=== PATIENT | female | born 1950 | race Caucasian/White ===

== ENCOUNTER 2018-11-05 08:22 | Inpatient (IN) ==
[~2018-11-05 08:22] MED LIST: MORPHINE SULFATE 15 MG TABLET.SA PO PRN; ROPIVACAINE HCL/PF 100 MG, EPINEPHrine 0.2 MG, KETOROLAC TROMETHAMINE 30 MG in NORMAL S... IJ PRN; TRANEXAMIC ACID 1,000 MG in NORMAL SALINE 100 ML IV PRN; ceFAZolin SODIUM 1 GM VIAL IV PRN
[2018-11-05] MEDS: RINGER'S SOLUTION,LACTATED 1,000 ML IV PRN ×3 (09:00→12:35)
--- NOTE | 2018-11-05 10:35 | ANES ---
Anesthesia Pre Procedure Eval Vitals/Labs: Last Vital Signs Temp 36.7 C 11/05/18 08:44 Pulse 71 11/05/18 08:44 Resp 18 11/05/18 08:44 BP 146/66 11/05/18 08:44 Pulse Ox 95 11/05/18 08:44 HOME MEDICATIONS metFORMIN HCL [Glucophage] 1,000 mg PO BIDWM 09/06/17 [Last Taken Unknown] blood sugar diagnostic strips See Dose Instructions .ROUTE .MEDSUPPLY #20 ea 01/30/18 [Last Taken Unknown] blood-glucose meter kit See Dose Instructions .ROUTE .MEDSUPPLY #1 ea 01/30/18 [Last Taken Unknown] lancets 28 gauge See Dose Instructions .ROUTE .MEDSUPPLY #25 ea 01/30/18 [Last Taken Unknown] multivitamin tablet 1 tab PO DAILY 01/30/18 [Last Taken Unknown] venlafaxine ER 150 mg capsule,extended release 24 hr 150 mg PO DAILY #90 cap 08/10/18 [Last Taken Unknown] apple cider vinegar 300 mg tablet 300 mg PO DAILY tab 10/18/18 [Last Taken Unknown] turmeric root extract 500 mg capsule 1,950 mg PO DAILY 10/18/18 [Last Taken Unknown] atorvastatin 10 mg tablet 10 mg PO DAILY 11/01/18 [Last Taken Unknown] Acetaminophen [Tylenol] 650 mg PO Q6H PRN 11/05/18 [Last Taken Unknown] Allergies/Adverse Reactions: Allergies Allergy/AdvReac Type Severity Reaction Status Date / Time No Known Allergies Allergy Verified 11/05/18 08:38 - Planned Procedure Planned Procedure: Left Arthroplasty Total Hip Medication List Reviewed:: Yes Allergies Verified: Yes Medical History (Updated 10/18/18 @ 08:51 by Donnie Flores MD) Urinary incontinence (Chronic) Onset Date: Unknown TMJ (temporomandibular joint disorder) (Chronic) Onset Date: ~2012 Neoplasm, ovary, malignant (Chronic) Onset Date: ~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, high grade serous ovarian carcinoma LISA (obstructive sleep apnea) (Chronic) Onset Date: Unknown Neuropathy (Chronic) Onset Date: Unknown Depression (Chronic) Onset Date: Unknown Cervical dysplasia (Resolved) Onset Date: Unknown Obesity Onset Date: Unknown Cellulitis Onset Date: ~2012 facial Ventral hernia Onset Date: ~2015 chemotherapy Onset Date: ~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 2011-Scattered small sigmoid diverticulosis. Recheck in 10 years History of laparotomy Onset Date: ~2011 History of tonsillectomy Onset Date: Unknown History of total abdominal hysterectomy and bilateral salpingo-oophorectomy Onset Date: ~2011 [facility]-ovarian cancer staging, robotic assisted lymph node resection Onset Date: ~2011 Pelvic and periaortic lymph node resection Family History (Updated 01/30/18 @ 14:25 by Chantal Newman RN) Mother Vertigo Brother Alive and well Sister Alive and well Father COPD (chronic obstructive pulmonary disease) Lung cancer Uncle Colon cancer Uncle Colon cancer Lung cancer Aunt Breast cancer - Family Anesthesia History Family History:: no untoward family reactions to anesthesia, no familial bleeding tendencies, no family history of clotting disorders, no family history of premature - Airway/Neck/Teeth Within Normal Limits:: Yes Teeth Condition: intact Mallampatti Score: 2 Thyromental (T-M) distance: > 6 cm Mandibulo Hyoid distance: > 3 cm - Respiratory Respiratory History: CPAP/BiPAP home use Respiratory Physical: lungs clear Smoking Status: Former smoker Discussed smoking cessation including day of surgery: No Sleep Apnea currently treated: Yes - Cardiovascular Tolerate Activity: Fair Heart Sounds: S1 & S2, Regular - Anesthesia Assessment and Plan ASA Class: PS, III Anesthesia Type Plan: Spinal
[2018-11-05] MEDS ORDERED: RINGER'S SOLUTION,LACTATED 1,000 ML IV PRN (12:30)
[2018-11-05] MEDS ORDERED: MAG HYDROX/ALUMINUM HYD/SIMETH 30 ML UDC PO PRN (12:30)
[2018-11-05] MEDS ORDERED: ZOLPIDEM TARTRATE 5 MG TABLET PO PRN (12:30)
[2018-11-05] MEDS ORDERED: ONDANSETRON HCL/PF 2 MG/ML VIAL IV PRN (12:30)
[2018-11-05] MEDS ORDERED: diphenhydrAMINE HCL 50 MG/ML VIAL IV PRN (12:30)
[2018-11-05] MEDS ORDERED: ACETAMINOPHEN 500 MG TABLET PO PRN (12:30)
[2018-11-05] MEDS ORDERED: MAGNESIUM HYDROXIDE 30 ML UDC PO PRN (12:30)
[2018-11-05] MEDS ORDERED: MORPHINE SULFATE 2 MG/ML DISP.SYRIN IV PRN (12:30)
--- NOTE | 2018-11-05 12:35 | OR ---
Operative Report - Dictated Report Narrative: Date: 11/05/2018 Preoperative diagnosis: Left hip degenerative joint disease. Postoperative diagnosis: Left hip degenerative joint disease. Procedure: Left total hip arthroplasty. Surgeon: Donnie Flores M.D. Boiler Technician: Glenn Jimenez PA-C (provided an essential set of skilled, educated and assisted with transfer, positioning, prepping, draping, manipulation, traction, irrigation, suturing, and placement of dressings all of which cannot be performed by the available surgical crew) Anesthesia: Spinal and local periarticular joint injection. Complications: None Specimens: Bone. Estimated blood loss: 200 milliliters. Retained implants: Depuy Tre[place]orton size 5 femoral stem standard offset. Size 52 millimeter outside diameter 3-hole [place] Gription acetabular cup. 52 millimeter outside by 36 millimeter inside diameter highly cross-linked acetabular liner. 36 millimeter diameter +5 millimeter ceramic femoral head. Cancellous 6.5mm screw 30 millimeter length Indications: Mrs. Rob is a 68-year-old female who has had long-standing left hip pain and arthrosis. This patient was followed in my clinic for period of time with significant complaints of left hip pain consistent with arthritic changes. She failed conservative measures including but not limited to activity modification, passage of time, medications, and other conservative measures. Patient wished to proceed with surgical treatment. The risks, benefits, and alternatives were discussed in clinic. The risks of , blood clots, bleeding, infection, nerve/tendon blood vessel/ injury, malposition of components, dislocation and/or instability of joint, intraoperative fracture, postoperative limited range of motion, persistent pain, failure of components, and need for additional procedures. Patient wished to proceed. Consent was obtained after answering all questions. Procedure: After marking the correct extremity on the floor, the patient was taken to the operating room. A timeout was performed. IV antibiotics consisting of Ancef were administered prior to the procedure. A spinal anesthetic was induced by anesthesia. A Farrell catheter was inserted. The patient was then transitioned to a lateral position on a well-padded pegboard. An axillary roll was placed. The head was in neutral position. The non- operative down leg was well-padded with SCD and JUANITO hose in place. The arms were supported and padded to protect from any undue pressure on the bony prominences and nerves. A well-padded anterior and posterior pelvic and chest posts were secured in order to maintain a stable position of the pelvis. This was placed so that the pelvis was perpendicular to the floor. The body was in line with the pelvis. Once it was felt that we had protected all the bony prominences and the patient was well secured with a safety belt as well, the leg was pre-scrubbed with alcohol, prepped and draped in a standard sterile fashion. A standard anterior lateral hip incision was marked out over the greater trochanter. Ioban drapes were then placed. The skin incision was then made. Sharp dissection with a scalpel utilizing cautery for hemostasis was carried out down to the gluteus and iliotibial band fascia. This was split in line with the skin incision. The greater trochanter bursa was excised. The anterior and posterior margins of the abductor tendon were identified. The anterior 1/2-1/3 of the tendon was tagged and reflected off the greater trochanter leaving a sleeve of tendon for repair at the completion of the case. This exposed the underlying hip joint capsule. A limb length stitch was placed in the skin and referencedd off a vargas on the greater trochanter for evaluation of intraoperative limb lengths. An inverted T-type capsulotomy was made extending this up to the brim of the acetabulum. Using Homans to assist with elevation of the soft tissues off the anterior, superior, and inferior aspects of the femoral neck, the hip was then placed in a figure 4 position and the femoral head was dislocated. With the leg in an externally rotated and adducted position, the cutting flag was utilized in order to vargas for a standard femoral neck cut approximately a fingerbreadth above the level of the lesser trochanter. This was done with reference to pre-operative films and overall alignment. This was done while protecting the surrounding soft tissues with Homans. The femoral head was then removed and sized for guidance on preparation of the acetabulum. It was noted that there was loss of articular cartilage on both the femoral head and weightbearing portions of the acetabulum. We then returned the leg to the table and turned our attention to the acetabulum. While protecting the surrounding soft tissues, the labrum and remaining tissue in the fovea were excised using a scalpel and cautery. A series of reamers up to size 52 millimeter were utilized to prepare the acetabulum. The final reamer had good purchase and exposed the bleeding subchondral bone. The acetabulum was then thoroughly irrigated ensuring that all bony and cartilaginous materials were removed, and the final acetabular shell was impacted into place. This was placed in approximately 45 degrees of abduction and 20 degrees of anteversion utilizing the outrigger and body axis for alignment. This had a good press fit. 1 6.5mm cancellous screw was placed in the superior posterior quadrant of the acetabulum. The shell was then thoroughly irrigated and the final polyethylene was impacted into place ensuring that it seated completely. This was then protected with a sponge while we returned our attention to the femur. With the leg in a figure 4 position, utilizing Homans for soft tissue protection, a box cutting osteotome, followed by Charnley awl, followed by serial reamers and broaches were utilized in order to prepare the femur. It was found that a size 5 broach gave good axial and rotational stability. The calcar reamer was utilized in order to clean up the cut edges. The proximal femur was visualized to ensure that there were no signs of fracture. A series of heads and necks were trialed. It was found that a standard offset neck and a + 5 femoral head gave good overall stability. There was minimal longitudinal instability. With the leg in the position of sleep, the femoral head was well covered. Hip range of motion was able to reach full extension and external rotation to greater than 75 degrees prior to impingement along the posterior acetabulum. The hip was able to be flexed to greater than 90 degrees with internal rotation greater than 60 degrees prior to anterior impingement. The limb lengths were near equal based on comparison to the contralateral side and the prior placed limb length stitch. At this point it was felt these were the appropriately sized femoral components as well as neck and femoral head. The trial implants were removed. The femur was thoroughly irrigated. The final implants were impacted into place, and the hip was reduced. After ensuring that there was no damage to the proximal femur, the standard periarticular joint injection of ropivacaine, Toradol, and epinephrine were injected into the joint capsule and surrounding soft tissues. Anesthesia then administered intravenous tranexamic acid. The capsule was repaired with a single interrupted #1 Vicryl. The abductor tendon was repaired to the greater trochanter utilizing #5 Ethibond through drill holes. This was oversewn with #1 Vicryl. The fascia was closed with interrupted #1 Vicryl and strata fix barbed suture. The wounds were thoroughly irrigated as we closed in layers. The deep and subcutaneous fat layers were closed with 0 and 3-0 Vicryl respectively. The subcutaneous tissue was closed with a running 3-0 Vicryl and the skin yanick. All sponge, needle, blade, and instrument counts were correct prior to closing the wounds. Sterile dressings consisting of xeroform, 4 x 4's, and tape were applied. The patient was awoken and transferred to her hospital bed and then to the postanesthesia care unit in stable condition. Postoperative condition: The plan is to admit to the medical/surgical inpatient floor postoperatively. There will be a projected 1 to 3 day hospital stay. Postoperatively 24 hours of IV antibiotics, pain control, physical therapy, occupational therapy, and medical comanagement will be utilized. Patient will be weightbearing as tolerated with anterior hip precautions. Postoperative films will be obtained in the recovery room.
--- NOTE | 2018-11-05 12:58 | ANES ---
Post Anesthesia Discharge - Transfer of Care Transfer of Care handoff given to nurse: Yes - Discharge from PACU Discharge from PACU when meets criteria: Yes
--- NOTE | 2018-11-05 13:33 | ANES ---
Post Anesthesia Assessment - Vital Signs Vitals: Last Vital Signs Temp 36.6 C 11/05/18 13:05 Pulse 60 11/05/18 13:10 Resp 14 11/05/18 13:10 BP 93/50 11/05/18 13:10 Pulse Ox 97 11/05/18 13:10 Airway Patency: Normal - Mental Status Level Of Consciousness: Awake - Pain Level Pain Score: 2 - N/V Assessment Nausea/Vomiting Presence: None Dehydration:: No
[2018-11-05] MEDS: KETOROLAC TROMETHAMINE 15 MG/ML VIAL IV SCH ×2 (13:42→19:11)
[2018-11-05] MEDS: ceFAZolin SODIUM 1 GM in DEXTROSE 5 % IN WATER 100 ML IV SCH ×4 (14:32→21:25)
[2018-11-05] MEDS: oxyCODONE HCL/ACETAMINOPHEN 1 TAB TABLET PO PRN ×2 (16:06→21:21)
[2018-11-05] MEDS ORDERED: SENNOSIDES/DOCUSATE SODIUM 1 TAB TABLET PO SCH (21:00)
[2018-11-05] MEDS: MORPHINE SULFATE 15 MG TABLET.SA PO SCH (21:21)
[2018-11-06] MEDS: KETOROLAC TROMETHAMINE 15 MG/ML VIAL IV SCH ×2 (01:13→07:43)
[2018-11-06] MEDS: ceFAZolin SODIUM 1 GM in DEXTROSE 5 % IN WATER 100 ML IV SCH ×2 (02:29)
[2018-11-06] MEDS: oxyCODONE HCL/ACETAMINOPHEN 1 TAB TABLET PO PRN ×2 (05:05→11:14)
[2018-11-06 05:25] LABS: Mean Cell Volume 97.8 fl (78-100); Mean Corpuscular Hemoglobin 30.7 pg (27-31); Mean Corpuscular Hgb Conc 31.4 g/dl (32-36); Mean Platelet Volume 8.7 fl (8-12.5); Platelet Count 163 K/mm3 (150-450); Red Blood Count 3.58 M/mm3 (4.2-5.4); Red Cell Distribution Width 13.5 % (11.5-14.0); White Blood Count 10.2 K/mm3 (4.0-10.5)
[2018-11-06 05:32] LABS: Anion Gap 10.7 mmol/L (6.8-13.8); BUN/Creatinine Ratio 21.3 (9.0-21.6); Calcium * 8.3 mg/dL (7.9-10.9); Carbon Dioxide 27.4 mmol/L (24-32.6); Estimated Creat Clear 47.8; Potassium 4.1 mmol/L (3.4-4.6)
[2018-11-06] MEDS ORDERED: ROSUVASTATIN CALCIUM 10 MG TABLET PO SCH (09:00)
[2018-11-06] MEDS ORDERED: MULTIVITAMINS 1 CAP CAPSULE PO SCH (09:00)
[2018-11-06] MEDS ORDERED: CIDER VINEGAR 300 MG PO SCH (09:00)
[2018-11-06] MEDS ORDERED: TURMERIC ROOT EXTRACT PO SCH (09:00)
[2018-11-06] MEDS ORDERED: VENLAFAXINE HCL 150 MG CAP.SR.24H PO SCH (09:00)
[2018-11-06] MEDS: MORPHINE SULFATE 15 MG TABLET.SA PO SCH (09:07)
[2018-11-06] MEDS ORDERED: ENOXAPARIN SODIUM 40 MG/0.4 ML SYRG SC SCH (11:30)
--- NOTE | 2018-11-06 12:20 | DS ---
(1) Status post left hip replacement Problem: Acute (2) Acute blood loss anemia Problem: Acute (3) Diabetes Problem: Chronic (4) Hypercholesterolemia Problem: Suspected (5) Osteoarthritis of hip Problem: Chronic Qualifiers: Description of Stay: Mrs. Rob was admitted to the floor after undergoing left total hip arthroplasty. Tolerated this well. Was admitted to the floor postoperatively for 24 hours of IV antibiotics, pain control, medical comanagement, and occupational and physical therapy. OT and PT were consulted to assist with activities of daily living and ambulation. Was made weightbearing as tolerated with range of motion as tolerated with anterior hip precautions. Pain was initially controlled with IV regimen. This was transitioned to oral once tolerating a by mouth intake. Was resumed on home diet and medications. Had a Farrell catheter inserted and the operating room which was discontinued on postoperative day 1. Lovenox SCD and JUANITO hose were utilized for DVT prophylaxis. Vital signs remained stable to the hospital course. Serial labs were obtained which showed a final hemoglobin of 11.0 grams. BMP was reviewed and was stable. Physical examination throughout the hospital course showed an extremity that had sensation that was intact to light touch, palpable pulses, a benign wound, motor intact to the toes, ankle, and knee. Once an oral pain regimen was tolerated and physical therapy goals were met, it was felt that they were stable for discharge to home. Instructions: Continue with weightbearing as tolerated and range of motion as tolerated with anterior hip precautions. Keep wound clean and dry if you note any drainage or for comfort you can cover with dry gauze and tape. Change every 2-3 days as needed. Continue with physical therapy. Resume home diet. Report any fever over 101.5 Fahrenheit, uncontrolled pain, increased drainage, foul odor of drainage, new or increased calf pain or shortness of breath, or any other significant complaints. A 325mg dialy aspirin will be started after finishing anticoagulation if not allergic. Continue with JUANITO hose on the operative extremity until instructed otherwise. No driving until instructed otherwise. Follow up in approximately 10-14 days. Procedures Performed: see notes below List Procedures: Left total hip arthroplasty Results and Findings: Lab Pending Results 11/06/18 05:15: WBC 10.2, RBC 3.58 L, Hgb 11.0 L, Hct 35.0 L, MCV 97.8, MCH 30.7, MCHC 31.4 L, RDW 13.5, Plt Count 163, MPV 8.7 11/06/18 05:15: Sodium 139, Plasma Sodium 139, Potassium 4.1, Chloride 105, Carbon Dioxide 27.4, Anion Gap 10.7, BUN 19, Creatinine 0.89, Est GFR (Non-Af Amer) 67, BUN/Creatinine Ratio 21.3, Random Glucose 101, Calcium 8.3 Discharge Location: Home Disposition: Home self-care Condition: Good Discharge Activity: Activity as tolerated, Weight bearing, Other - Wheeled walker with anterior hip precautions Discharge Diet: Consistent carbs, Low fat/chol Referrals: Donnie Flores MD [Staff Physician] - 11/20/18 1:45 pm Problem Oriented Discharge Instructions to Patient/Family: Total Hip Replacement, [id number] Additional Patient Instructions (free text): Physical therapy at [facility] rehab scheduled for Monday11/07/18 at 8:00am. Post-op follow up in the office with Dr. Salcedo scheduled for Monday11/20/18 at 1:45pm. Prescriptions (Any new or edited meds): Enoxaparin Sodium [Lovenox] 40 mg SC Q24H #7 disp.syrin Morphine Sulfate [Ms Contin] 15 mg PO Q12H #14 tablet.sa oxyCODONE HCL/ACETAMINOPHEN [Percocet 5 MG/325 MG] 2 tab PO Q4H PRN #60 tab PRN Reason: Moderate Pain (Pain Scale 4-6) Sennosides/Docusate Sodium [Senokot-S] 2 tab PO HS #30 tab Complete Home Medications List: Complete Home Medication List: metFORMIN HCL [Glucophage] 1,000 mg PO BIDWM 09/06/17 blood sugar diagnostic strips See Dose Instructions .ROUTE .MEDSUPPLY #20 ea 01/30/18 blood-glucose meter kit See Dose Instructions .ROUTE .MEDSUPPLY #1 ea 01/30/18 lancets 28 gauge See Dose Instructions .ROUTE .MEDSUPPLY #25 ea 01/30/18 multivitamin tablet 1 tab PO DAILY 01/30/18 venlafaxine ER 150 mg capsule,extended release 24 hr 150 mg PO DAILY #90 cap 08/10/18 apple cider vinegar 300 mg tablet 300 mg PO DAILY tab 10/18/18 turmeric root extract 500 mg capsule 1,950 mg PO DAILY 10/18/18 atorvastatin 10 mg tablet 10 mg PO DAILY 11/01/18 Enoxaparin Sodium [Lovenox] 40 mg SC Q24H #7 disp.syrin 11/06/18 Morphine Sulfate [Ms Contin] 15 mg PO Q12H #14 tablet.sa 11/06/18 Sennosides/Docusate Sodium [Senokot-S] 2 tab PO HS #30 tab 11/06/18 oxyCODONE HCL/ACETAMINOPHEN [Percocet 5 MG/325 MG] 2 tab PO Q4H PRN #60 tab 11/06/18 Amb Orders for Discharge: PT Evaluation and Treatment* Facility: [facility], Location: Rehabilitation Services
[2018-11-06 13:47] VITALS: BP 145/67
== END 2018-11-06 14:05 | disposition home or self-care (01) | DRG 470 ==
LOC: MS 08:22
PROVIDERS: ADMIT Orthopaedic Surgery; ATTEND Orthopaedic Surgery
DX: M16.12 Unilateral primary osteoarthritis, left hip; Z92.21 Personal history of antineoplastic chemotherapy; Z68.42 Body mass index [BMI] 45.0-49.9, adult; G47.33 Obstructive sleep apnea (adult) (pediatric); Z85.43 Personal history of malignant neoplasm of ovary; Z87.891 Personal history of nicotine dependence; F32.9 Major depressive disorder, single episode, unspecified; E66.9 Obesity, unspecified
CPT/HCPCS: 36415; 73502; 80048; 85027; 94660; 97110; 97116; 97161; 97165; 97530; J2405

== ENCOUNTER 2019-09-23 06:25 | Observation (INO) ==
[~2019-09-23 06:25] MED LIST changes: +RINGER'S SOLUTION,LACTATED 1,000 ML IV PRN
[2019-09-23] MEDS ORDERED: PROPOFOL VIAL IV ONE (06:36)
[2019-09-23] MEDS ORDERED: BUPIVACAINE HCL/EPINEPHRINE/PF 30 ML VIAL IJ ONE (06:36)
[2019-09-23] MEDS ORDERED: MIDAZOLAM HCL/PF 5 MG/ML VIAL ONE (06:36)
[2019-09-23] MEDS ORDERED: ISOPROPYL ALCOHOL 480 APPL BTL MC ONE (07:15)
[2019-09-23] MEDS ORDERED: ceFAZolin SODIUM 1 GM VIAL ONE (07:15)
--- NOTE | 2019-09-23 07:21 | ANES ---
Anesthesia Pre Procedure Eval Vitals/Labs: Last Vital Signs Temp 36.3 C 09/23/19 06:43 Pulse 62 09/23/19 06:43 Resp 16 09/23/19 06:43 BP 131/64 09/23/19 06:43 Pulse Ox 95 09/23/19 06:43 HOME MEDICATIONS metFORMIN HCL [Glucophage] 1,000 mg PO BIDWM 09/06/17 [Last Taken Unknown] blood sugar diagnostic See Dose Instructions .ROUTE .MEDSUPPLY #20 ea 01/30/18 [Last Taken Unknown] blood-glucose meter See Dose Instructions .ROUTE .MEDSUPPLY #1 ea 01/30/18 [Last Taken Unknown] lancets 28 gauge See Dose Instructions .ROUTE .MEDSUPPLY #25 ea 01/30/18 [Last Taken Unknown] multivitamin 1 tab PO DAILY 01/30/18 [Last Taken Unknown] atorvastatin 10 mg tablet 10 mg PO DAILY 11/01/18 [Last Taken Unknown] venlafaxine 150 mg capsule,extended release 24 hr See Rx Instructions .ROUTE .COMPLEX #90 capsule 06/06/19 [Last Taken Unknown] cholecalciferol (vitamin D3) 25 mcg (1,000 unit) capsule 25 mcg PO DAILY 08/22/19 [Last Taken Unknown] gabapentin 300 mg capsule 300 mg PO BID 08/22/19 [Last Taken Unknown] Allergies/Adverse Reactions: Allergies Allergy/AdvReac Type Severity Reaction Status Date / Time No Known Allergies Allergy Verified 09/23/19 06:39 - Planned Procedure Planned Procedure: Right Arthroplasty Total Knee Medication List Reviewed:: Yes Allergies Verified: Yes Medical History (Last Reviewed 09/23/19 @ 07:19 by Jesús Gill CRNA) Urinary incontinence (Chronic) Onset Date: Unknown TMJ (temporomandibular joint disorder) (Chronic) Onset Date: ~2012 Neoplasm, ovary, malignant (Chronic) Onset Date: ~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, high grade serous ovarian carcinoma LISA (obstructive sleep apnea) (Chronic) Onset Date: Unknown Neuropathy (Chronic) Onset Date: Unknown Depression (Chronic) Onset Date: Unknown Cervical dysplasia (Resolved) Onset Date: Unknown Diabetes mellitus, type II Obesity Onset Date: Unknown Cellulitis Onset Date: ~2012 facial Ventral hernia Onset Date: ~2015 chemotherapy Onset Date: ~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 high grade serous ovarian carcinoam Surgical History (Last Reviewed 09/23/19 @ 07:19 by Jesús Gill CRNA) Status post left hip replacement (Chronic) 11/05/18 [place] Status post total hip replacement, left Onset Date: ~11/05/18 H/O adenoidectomy Onset Date: Unknown H/O colposcopy with cervical biopsy Onset Date: Unknown H/O hernia repair Onset Date: Unknown H/O oral surgery Onset Date: Unknown upper palate History of appendectomy Onset Date: ~1975 History of biopsy Onset Date: ~2011 peritoneal biopsy History of cataract surgery Onset Date: ~2015 Bilateral History of colonoscopy Onset Date: ~2011 2005-Dr Rock-scattered small sigmoid diverticulosis. 2011-Scattered small sigmoid diverticulosis. Recheck in 10 years History of laparotomy Onset Date: ~2011 History of tonsillectomy Onset Date: Unknown History of total abdominal hysterectomy and bilateral salpingo-oophorectomy Onset Date: ~2011 [facility]-ovarian cancer staging, robotic assisted lymph node resection Onset Date: ~2011 Pelvic and periaortic lymph node resection Family History (Last Reviewed 09/23/19 @ 06:41 by Dayanna Boland RN) Mother Vertigo Brother Alive and well Sister Alive and well Father COPD (chronic obstructive pulmonary disease) Lung cancer Uncle Colon cancer Uncle Colon cancer Lung cancer Aunt Breast cancer - Family Anesthesia History Family History:: no untoward family reactions to anesthesia, no familial bleeding tendencies, no family history of clotting disorders, no family history of premature - Airway/Neck/Teeth Within Normal Limits:: Yes Teeth Condition: intact Neck Exam: full range of motion Mallampatti Score: 3 Thyromental (T-M) distance: > 6 cm Mandibulo Hyoid distance: > 3 cm - Respiratory Respiratory History: sleep apnea, CPAP/BiPAP home use Respiratory Physical: lungs clear Smoking Status: Former smoker Sleep Apnea currently treated: Yes Sleep Apnea by current assessment: Yes - Cardiovascular Tolerate Activity: Fair Heart Sounds: S1 & S2, Regular - Gastrointestinal NPO since: 2400 - Anesthesia Assessment and Plan ASA Class: PS, III Anesthesia Type Plan: Block - Adductor canal block for post op pain relief, Spinal
[2019-09-23] MEDS ORDERED: RINGER'S SOLUTION,LACTATED 1,000 ML IV PRN (09:46)
[2019-09-23] MEDS ORDERED: MAG HYDROX/ALUMINUM HYD/SIMETH 30 ML UDC PO PRN (09:46)
[2019-09-23] MEDS ORDERED: MORPHINE SULFATE 2 MG/ML DISP.SYRIN IV PRN (09:46)
[2019-09-23] MEDS ORDERED: MAGNESIUM HYDROXIDE 30 ML UDC PO PRN (09:46)
[2019-09-23] MEDS ORDERED: ZOLPIDEM TARTRATE 5 MG TABLET PO PRN (09:46)
[2019-09-23] MEDS ORDERED: ONDANSETRON HCL/PF 2 MG/ML VIAL IV PRN (09:46)
[2019-09-23] MEDS ORDERED: diphenhydrAMINE HCL 50 MG/ML VIAL IV PRN (09:46)
[2019-09-23] MEDS ORDERED: ACETAMINOPHEN 500 MG TABLET PO PRN (09:46)
--- NOTE | 2019-09-23 09:52 | OR ---
Operative Report - Dictated Report Narrative: Date: 09/23/2019 Preoperative diagnosis: Right knee degenerative joint disease. Postoperative diagnosis: Right knee degenerative joint disease. Procedure: Right total knee arthroplasty. Surgeon: Donnie Flores M.D. Mission Coordinator: Glenn Jimenez PA-C (provided and essential set of skilled, educated hands that assisted with transfer, positioning, prepping, draping, manipulation, retraction, placement of jigs, injection, insertion of implants, irrigation, closure wounds, and dressings all of which could not be performed by the available surgical crew) Anesthesia: Spinal with regional block and local periarticular joint injection. Complications: None Specimens: Bone. Estimated blood loss: Minimal. Tourniquet time: 85 Minutes at 300 millimeters of mercury. Retained implants: Depuy Attune size 5 narrow right lugged cemented posterior stabilized femoral component. Size 4 fixed-bearing cemented tibial platform. 5 by 5 millimeter posterior stabilized cross-linked tibial insert. 35 millimeter medialized patella button. Indications: Mrs. Darron Oropeza is a 69-year-old female who has had longstanding right knee pain and arthrosis. This patient was followed in my clinic for period of time with significant complaints of right knee pain consistent with arthritic changes. She had failed conservative measures including, but not limited to, activity modification, passage of time, medications, and other conservative measures. Patient wished to proceed with surgical treatment. The risks, benefits, and alternatives were discussed in clinic. The risks of , blood clots, bleeding, infection, nerve/tendon blood vessel/ injury, malposition of components, intraoperative fracture, postoperative limited range of motion, persistent pain, failure of components, and need for additional procedures. Patient wished to proceed consent was obtained after answering all questions. Procedure: After marking the correct extremity on the floor, the patient was taken to the operating room. A timeout was performed. IV antibiotics consisting of Ancef were administered prior to the procedure. A regional followed by spinal anesthetic was induced by anesthesia, per my request, on the operative table with all bony prominences well-padded. Farrell catheter was plac ed, and a bump was placed under the operative side buttock. SCDs and JUANITO hose were utilized on the nonoperative leg. A well-padded tourniquet was applied to the operative thigh. The operative leg was then pre-scrubbed with alcohol, prepped, and draped in a standard sterile fashion. After exsanguinating the extremity with an Esmarch bandage, the tourniquet was inflated. After marking out the anterior knee for standard incision centered over the patella, the skin was incised and dissected down to the joint retinaculum. The joint retinaculum was marked out as well as the horizontal axis of the patella, and a standard medial parapatellar arthrotomy was then made. The most proximal aspect of the quadriceps tendon and the patella tendon insertion were protected from release. A partial synovectomy was performed as well as a resection of the infrapatellar fat pad. The distal femoral fat pad proximal to the trochlea was also resected using cautery. The soft tissues were elevated off the medial aspect of the proximal tibia using a Medley elevator ensuring that we did not transect the medial collateral ligament. Upon initial evaluation range of motion was approximately 0 degrees to 115 degrees of flexion. There were signs of advanced arthrosis in the medial and patellofemoral joints greater than the lateral joint spaces. There were large marginal osteophytes which were removed with a rongeur. The knee was hyperflexed and the patella was tucked laterally. Protecting the surrounding soft tissues with Homans, an entry drill was placed down the femoral canal using Whitesides line for guidance into the entry point. The intramedullary femoral alignment galilea was utilized in order to cut the distal femur in 5 degrees of valgus resecting 10 millimeters of bone. Next the distal femur was sized to a size 5. A posterior referencing guide was utilized to place the distal femoral cutting block in 3 degrees of external rotation. This was pinned into place. The rotation was confirmed both visually and based on anatomic landmarks. The 4 in 1 cutting jig of the appropriate size was utilized in order to make all bony cuts. The donavan wing was used to ensure no notching. Retractors were utilized in order to protect surrounding soft tissues. This cut did not result in any excessive notching. We then cut the box centered over the distal femur. This allowed for resection of the anterior and posterior cruciate ligaments. I then turned my attention to the preparation of the tibia. Using an extra medullary tibial alignment galilea, 3 millimeters of bone was resected off the medial articular surface. This was made perpendicular to the mechanical axis of the joint with the alignment galilea centered over the ankle mortise. The alignment galilea was checked and was noted to be parallel to the mechanical axis, centered over the medial one third of the tibial tubercle, paralleling the anterior surface of the tibia. We then turned our attention to the remaining meniscus and soft tissues. These were removed while protecting the surrounding ligaments and soft tissues. The marginal osteophytes off the anterior, posterior, medial, lateral aspects of the femur and tibia were removed. The tibia was sized out to a size 4. Next the tibia was drilled and punched in an externally rotated position. Next the trial femur and a series of tibial inserts were utilized in order to allow for full extension and maximal flexion. It was found that a 5 millimeter insert gave the best range of motion and stability at multiple flexion points as well as at full extension there was less than 2 mm of gapping both medially and laterally. There is minimal anterior translation with the knee at 90 degrees of flexion and no signs of being able to dislocate the knee. The patella was then prepared. The initial thickness was 22 millimeters. This was reamed down to 12 millimeters parallel to the anterior surface of the patella. It was sized out to a size 35 medialized patella button. This was then drilled and trialed. Without any medial restraint the patella tracked appropriately and did not sublux or dislocate. At this point, it was felt these were the appropriate sized implants, and all trials were removed. The standard periarticular joint injection consisting of ropivacaine, Toradol, and epinephrine were injected into the periarticular joint tissues. The bony surfaces were thoroughly irrigated with a pulsatile-suction saline irrigation device. A bone plug from the prior resected anterior chamfer cut was placed into the drill hole at the distal femur. The bony surfaces were then dried in preparation for placement of the implants. The cement was vacuum mixed per the athletic director's instructions. The cement was placed on the dry bony surfaces and posterior aspect of the implants. The implants were impacted into place, removing all extruded cement. At this point anesthesia administered tranexamic acid per protocol intravenously. The knee was placed in extension with axial loading with the trial insert while the cement cured. Once the cement cured, all remaining extruded cement was removed. The knee was placed through a range of motion with the trial insert to ensure appropriate range of motion and stability. Final range of motion was approximately 0 to 120 degrees. The knee was again thoroughly irrigated with pulsatile saline lavage. The final polyethylene insert was then impacted into place ensuring no retained soft tissues. The remaining periarticular joint injection was injected. A medium Hemovac drain was placed exiting superior laterally. The knee was then placed over a triangle and the arthrotomy was closed with interrupted #1 Vicryl after thoroughly irrigating the joint. The deep and subcutaneous tissues were closed with interrupted 0 and 3-0 Vicryl respectively. Skin was closed with a running subcutaneous 3-0 Monocryl and Prineo Dermabond dressing. 4 x 4's, Sof-Rol, and a full leg Miquel wrap were applied. All sponge, needle, blade, and instrument counts were correct prior to closing the wounds. Postoperative condition: The patient was awoken and transferred to the postanesthesia care unit in stable condition. Plan is to be admitted to the inpatient medical/surgical floor postoperatively for 24 hours of IV antibiotics, physical therapy, occupational therapy, and medical comanagement. Patient will be weightbearing as tolerated with range of motion as tolerated. DVT prophylaxis will be with SCDs, JUANITO hose, and pharmacological anticoagulation. Anticipated hospital stay is approximately 1-3 days.
--- NOTE | 2019-09-23 10:06 | ANES ---
Anesthesia Procedure Note Procedure Note: ANESTHESIA PROCEDURE NOTE Date of Procedure: 09/23/2019 Time of procedure: 7:45 AM. Performed by: LILA Gomez CRNA, MSN Optical Engineering Manager: Maura Burt RN. Preprocedure diagnosis: Post total knee arthroplasty pain. Post procedure diagnosis: Same. Procedure: Right adductor Canal Block. Indications: Post right total knee arthroplasty pain relief. Findings: See below. Details of the procedure: The patient was brought to OR #4 and placed in supine position. The patient's right femoral area to the knee was prepped with chlorhexidine and using ultrasound guidance the right femoral artery and nerve was identified and then followed to the level of the adductor canal. Lidocaine 1% was infiltrated to the skin of the intended injection site. Under ultrasound guidance the saphenous nerve was approached with visualization of a 4 inch shielded block needle. Once saphenous nerve was identified with proximity to the needle tip, the saphenous nerve was surrounded with 2 mL bupivacaine 0.5% with 1-200,000 epinephrine. Please see radiology/ultrasound report for details and retained images of the procedure. EBL: 0 Fluids: N/A. Specimen: N/A. Post procedure condition: The patient tolerated the procedure well. No complications were noted. Thank you for this consultation. Jesús Gill CRNA, ARNP, MSN
--- NOTE | 2019-09-23 10:06 | ANES ---
Post Anesthesia Discharge - Transfer of Care Transfer of Care handoff given to nurse: Yes - Discharge from PACU Discharge from PACU when meets criteria: Yes - Alert and comfortable.
--- NOTE | 2019-09-23 10:42 | ANES ---
Post Anesthesia Assessment - Vital Signs Vitals: Last Vital Signs Temp 36.4 C 09/23/19 10:31 Pulse 63 09/23/19 10:31 Resp 14 09/23/19 10:31 BP 122/60 09/23/19 10:31 Pulse Ox 100 09/23/19 10:31 Airway Patency: Normal - Mental Status Level Of Consciousness: Awake, Alert, Appropriate - Pain Level Pain Score: 0 - N/V Assessment Nausea/Vomiting Presence: None Dehydration:: No
[2019-09-23] MEDS: KETOROLAC TROMETHAMINE 15 MG/ML VIAL IV SCH ×3 (10:51→21:55)
[2019-09-23] MEDS: ceFAZolin SODIUM 1 GM in DEXTROSE 5 % IN WATER 100 ML IV SCH ×4 (10:51→17:23)
[2019-09-23] MEDS: oxyCODONE HCL/ACETAMINOPHEN 1 TAB TABLET PO PRN (17:28)
[2019-09-23] MEDS: GABAPENTIN 300 MG CAPSULE PO SCH (20:09)
[2019-09-23] MEDS: MORPHINE SULFATE 15 MG TABLET.SA PO SCH (20:19)
[2019-09-23] MEDS ORDERED: ROSUVASTATIN CALCIUM 10 MG TABLET PO SCH (21:00)
[2019-09-23] MEDS ORDERED: SENNOSIDES/DOCUSATE SODIUM 1 TAB TABLET PO SCH (21:00)
[2019-09-24] MEDS: ceFAZolin SODIUM 1 GM in DEXTROSE 5 % IN WATER 100 ML IV SCH ×2 (00:06)
[2019-09-24] MEDS: KETOROLAC TROMETHAMINE 15 MG/ML VIAL IV SCH ×3 (04:32→15:09)
[2019-09-24] MEDS: oxyCODONE HCL/ACETAMINOPHEN 1 TAB TABLET PO PRN ×3 (05:32→14:03)
[2019-09-24 06:13] LABS: Hematocrit 36.9 % (37.0-47.0); Hemoglobin 11.8 gm/dL (12.5-16.0); Mean Cell Volume 94.9 fl (78-100); Mean Corpuscular Hemoglobin 30.3 pg (27-31); Mean Platelet Volume 9.2 fl (8-12.5); Platelet Count 149 K/mm3 (150-450); Red Blood Count 3.89 M/mm3 (4.2-5.4); Red Cell Distribution Width 13.5 % (11.5-14.0); White Blood Count 7.6 K/mm3 (4.0-10.5)
[2019-09-24 06:21] LABS: Anion Gap 10.1 mmol/L (6.8-13.8); BUN/Creatinine Ratio 16.7 (9.0-21.6); Calcium * 8.7 mg/dL (7.9-10.9); Carbon Dioxide 27.2 mmol/L (24-32.6); Estimated Creat Clear 47.7; Potassium 4.3 mmol/L (3.4-4.6)
[2019-09-24] MEDS: MORPHINE SULFATE 15 MG TABLET.SA PO SCH (08:12)
[2019-09-24] MEDS: GABAPENTIN 300 MG CAPSULE PO SCH (08:12)
[2019-09-24] MEDS ORDERED: ENOXAPARIN SODIUM 40 MG/0.4 ML SYRG SC SCH (08:47)
[2019-09-24] MEDS ORDERED: CHOLECALCIFEROL 1,000 UNIT CAPSULE PO SCH (09:00)
[2019-09-24] MEDS ORDERED: VENLAFAXINE HCL 150 MG CAP.SR.24H PO SCH (09:00)
[2019-09-24] MEDS ORDERED: MULTIVITAMINS 1 CAP CAPSULE PO SCH (09:00)
--- NOTE | 2019-09-24 15:57 | DS ---
(1) Status post right knee replacement Problem: Acute (2) Diabetes type 2, controlled Problem: Chronic (3) Acute blood loss anemia Problem: Acute (4) Hypercholesterolemia Problem: Chronic (5) LISA (obstructive sleep apnea) Problem: Chronic (6) Neuropathy Problem: Chronic Date of Discharge:: 09/24/19 Hospital Course: Mrs. Rob was admitted to the floor after undergoing right total knee arthroplasty. Tolerated this well. Was admitted to the floor postoperatively for 24 hours of IV antibiotics, pain control, medical comanagement, and occupational and physical therapy. OT and PT were consulted to assist with activities of daily living and ambulation. Was made weightbearing as tolerated with range of motion as tolerated. Pain was initially controlled with IV regimen. This was transitioned to oral once tolerating a by mouth intake. Was resumed on home diet and medications. Had a Farrell catheter inserted and the operating room which was discontinued on postoperative day 1. A drain was placed intraoperatively into the knee which was discontinued on postoperative day 1. Lovenox SCD and JUANITO hose were utilized for DVT prophylaxis. Vital signs remained stable to the hospital course. Serial labs were obtained which showed a final hemoglobin of 11.8 grams down from 14.1 g preoperatively. BMP was reviewed and was stable. Physical examination throughout the hospital course showed an extremity that had sensation that was intact to light touch, palpable pulses, a benign wound, motor intact to the toes, ankle, and knee. Knee range of motion was approximately 5 degrees to 70 degrees. Once an oral pain regimen was tolerated and physical therapy goals were met, it was felt that they were stable for discharge to home. Instructions: Continue with weightbearing as tolerated and range of motion as tolerated. It is OK to shower on the wound if it is not draining. If you note any drainage or for comfort you can cover with dry gauze and tape. Change every 2-3 days as needed. Continue with physical therapy. Resume home diet. Report any fever over 101.5 Fahrenheit, uncontrolled pain, increased drainage, foul odor of drainage, new or increased calf pain or shortness of breath, or any other significant complaints. A 325mg dialy aspirin will be started after finishing anticoagulation if not allergic. Continue with JUANITO hose on the operative extremity until instructed otherwise. No driving until instructed otherwise. Follow up in approximately 10-14 days. Procedures Performed: see notes below List Procedures: Right total knee arthroplasty Results and Findings: Lab Pending Results 09/24/19 06:12: WBC 7.6, RBC 3.89 L, Hgb 11.8 L, Hct 36.9 L, MCV 94.9, MCH 30.3, MCHC 32.0, RDW 13.5, Plt Count 149 L, MPV 9.2 09/24/19 06:12: Sodium 137, Plasma Sodium 137, Potassium 4.3, Chloride 104, Carbon Dioxide 27.2, Anion Gap 10.1, BUN 14, Creatinine 0.84, Est GFR (Non-Af Amer) 71, BUN/Creatinine Ratio 16.7, Random Glucose 96, Calcium 8.7 Discharge Location: Home Disposition: Home self-care Condition: Good Discharge Activity: Activity as tolerated Discharge Diet: Consistent carbs, Low fat/chol Referrals: Neva Joseph MD [Primary Care Provider] - Additional Patient Instructions (free text): [facility] Physical Therapy appointment MondaySeptember 24 at 1:00p.m. Follow up in the Orthopedic office with Dr. Flores MondayOctober 14 at 9:45a.m. Prescriptions (Any new or edited meds): Enoxaparin Sodium [Lovenox] 40 mg SC Q24H #7 disp.syrin Transmission Status: Pending to [place], [place] Morphine Sulfate [Ms Contin] 15 mg PO Q12H #20 tablet.sa Transmission Status: Received by [place] oxyCODONE HCL/ACETAMINOPHEN [Percocet 5 MG/325 MG] 2 tab PO Q4H PRN #56 tab PRN Reason: Moderate Pain (Pain Scale 4-6) Transmission Status: Received by [place], [place] Sennosides/Docusate Sodium [Senokot-S] 2 tab PO HS #30 tab Transmission Status: Pending to [place], [place] Complete Home Medications List: Complete Home Medication List: metFORMIN HCL [Glucophage] 1,000 mg PO BIDWM 09/06/17 blood sugar diagnostic See Dose Instructions .ROUTE .MEDSUPPLY #20 ea 01/30/18 blood-glucose meter See Dose Instructions .ROUTE .MEDSUPPLY #1 ea 01/30/18 lancets 28 gauge See Dose Instructions .ROUTE .MEDSUPPLY #25 ea 01/30/18 multivitamin 1 tab PO DAILY 01/30/18 atorvastatin 10 mg tablet 10 mg PO DAILY 11/01/18 venlafaxine 150 mg capsule,extended release 24 hr See Rx Instructions .ROUTE .COMPLEX #90 capsule 06/06/19 cholecalciferol (vitamin D3) 25 mcg (1,000 unit) capsule 25 mcg PO DAILY 08/22/19 gabapentin 300 mg capsule 300 mg PO HS 08/22/19 Enoxaparin Sodium [Lovenox] 40 mg SC Q24H #7 disp.syrin 09/24/19 Morphine Sulfate [Ms Contin] 15 mg PO Q12H #20 tablet.sa 09/24/19 Sennosides/Docusate Sodium [Senokot-S] 2 tab PO HS #30 tab 09/24/19 oxyCODONE HCL/ACETAMINOPHEN [Percocet 5 MG/325 MG] 2 tab PO Q4H PRN #56 tab 09/24/19 Amb Orders for Discharge: PT Evaluation and Treatment* Facility: [facility], Location: Rehabilitation Services Forms: Patient Portal Registration
[2019-09-24 16:13] VITALS: BP 126/61
== END 2019-09-24 16:30 | disposition home or self-care (01) ==
LOC: MS 06:25 → SUR 06:25
PROVIDERS: ADMIT Orthopaedic Surgery; ATTEND Orthopaedic Surgery
DX: M17.11 Unilateral primary osteoarthritis, right knee; E78.00 Pure hypercholesterolemia, unspecified; Z68.42 Body mass index [BMI] 45.0-49.9, adult; G62.9 Polyneuropathy, unspecified; E11.9 Type 2 diabetes mellitus without complications; E66.9 Obesity, unspecified; D62 Acute posthemorrhagic anemia; G47.33 Obstructive sleep apnea (adult) (pediatric)
CPT/HCPCS: 36415; 73560; 80048; 85027; 94660; 96365; 96366; 96372; 96375; 96376; 97110; 97116; 97161; 97165; 97535; G0378